=== PATIENT | female | born 1995 | race Two or more races ===

== ENCOUNTER 2024-06-09 20:25 | Emergency (ER) | payer MEDICAID, OTHER ==
[~2024-06-09] VITALS: Ht 162.6 cm; Wt 84.8 kg
--- NOTE | 2024-06-09 23:04 | ED.PDOC ---
SOB-HPI HPI Comments C/C of cough, generalized body aches, congestion and sneezing since Thursday. PMH of asthma, pt states she took prednisone x2 today at 1000 with no relief. Pt afebrile. No s/s of distress noted. Pt breathing even and unlabored on room air. 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 Family History Family History: Reviewed,noncontributory to illness Social History Smoker: Non-Smoker Alcohol: Denies ETOH Use Drugs: Denies Drug Use Constitutional: reports: fever, weakness; denies: chills, diaphoresis, fatigue, malaise, sweats, others EENTM: reports: nasal discharge; denies: blurred vision, double vision, ear bleeding, ear discharge, ear drainage, ear pain, ear ringing, eye pain, eye redness, hearing loss, mouth pain, mouth swelling, nose bleeding, nose congestion, nose pain, photophobia, tearing, throat pain, throat swelling, voice changes, others Respiratory: reports: cough; denies: hemoptysis, orthopnea, SOB at rest, shortness of breath, SOB with excertion, stridor, wheezing, others Cardiovascular: denies: chest pain, dizzy spells, diaphoresis, Dyspnea on exertion, edema, irregular heart beat, left arm pain, lightheadedness, palpitations, PND, syncope, others Gastrointestinal: denies: abdomen distended, abdominal pain, blood streaked bowels, constipated, diarrhea, dysphagia, difficulty swallowing, hematemesis, melena, nausea, poor appetite, poor fluid intake, rectal bleeding, rectal pain, vomiting, others Genitourinary: denies: abnormal vagina bleeding, burning, dyspareunia, dysuria, flank pain, frequency, hematuria, incontinence, pain, , vagina discharge, urgency, others Neurological: denies: dizziness, fainting, headache, left sided numbness, left sided weakness, numbness, paresthesia, pre-existing deficit, right sided numbness, right sided weakness, seizure, speech problems, tingling, tremors, weakness, others Musculoskeletal: denies: back pain, gout, joint pain, joint swelling, muscle pain, muscle stiffness, neck pain, others Integumetry: denies: bruises, change in color, change in hair/nails, dryness, laceration, lesions, lumps, rash, wounds, others Allergic/Immunocompromised: denies: Difficulty Healing, Frequent Infections, Hives, Itching, others Hematologic/Lymphatic: denies: anemia, blood clots, easy bleeding, easy bruising, swollen glands, others Endocrine: denies: excessive hunger, excessive sweating, excessive thirst, excessive urination, flushing, intolerance to cold, intolerance to heat, unexp lained weight gain, unexplained weight loss, others Psychiatric: denies: anxiety, bipolar disorder, depression, hopeless, panic disorder, schizophrenia, sleepless, suicidal, others Physical Exam General Appearance: No Apparent Distress, Normal HEENT: Normal ENT Inspection, Pharynx Normal, TMs Normal Neck: Full Range of Motion, Non-Tender, Normal, Normal Inspection Respiratory: Chest Non-Tender, No Accessory Muscle Use, No Respiratory Distress, Wheezing Cardiovascular: No Edema, No JVD, No Murmur, No Gallop, Normal Peripheral Pulses, Regular Rate/Rhythm Breast Exam: Deferred Gastrointestinal: No Organomegaly, Non Tender, No Pulsatile Mass, Normal Bowel Sounds, Soft Genitalia: Deferred Pelvic: Deferred Rectal: Deferred Extremities: No calf tenderness, Normal capillary refill, Normal inspection, Normal range of motion, Non-tender, No pedal edema Musculoskeletal : Apperance: Normal Neurologic: Alert, 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 Was a procedure done?: No Differential Dx Differential Diagnosis: Asthma, Bronchitis, Pneumonia X-Ray, Labs, Meds, VS Vital Signs Date Time Temp Pulse Resp B/P (MAP) Pulse Ox O2 Delivery O2 Flow Rate FiO2 06/09/24 23:35 98.7 120 18 162/119 (133) 97 98.7 06/09/24 23:20 18 98 Room Air* 0 21 06/09/24 22:04 100 16 98 Room Air 06/09/24 22:04 99.0 100 16 106/73 (84) 98 99.0 06/09/24 20:54 99.0 100 16 106/73 (84) 98 99.0 Current Medications Medications (Trade) Dose Ordered Sig/Maria Elena Route Start Time Stop Time Status Last Admin Albuterol (Ventolin Medneb) 5 mg ONCE ONCE NEB 06/09/24 23:15 06/09/24 23:16 DC 06/09/24 23:44 Ipratropium [place] (Atrovent Medneb) 0.5 mg ONCE ONCE NEB 06/09/24 23:15 06/09/24 23:16 DC 06/09/24 23:44 Methylprednisolone Sodium Succinate (Solu Medrol) 125 mg ONCE ONCE IM 06/09/24 23:15 06/09/24 23:16 DC 06/09/24 23:19 X-Ray, Labs, Meds, VS Comment PATIENT RECEIVED BREATHING TREATMENT LUNG SOUNDS CLEAR AND EQUAL BILATERAL TOLERATED WELL REPORTS IMPROVEMENT IN REQUESTING DISCHARGE AT THIS TIME MEDROL GIVEN 125 MG IM. TRIAL AZITHROMYCIN ADVISED TO REST INCREASE P.O. FLUIDS WITH ELECTROLYTES PATIENT STATES SHE HAS HER RESCUE INHALER AT HOME AND AVAILABLE DOES NOT READ REFILL AT THIS TIME. ADVISED TO FOLLOW UP WITH HER PCP IN 2-3 DAYS NECESSARY ER RETURN PRECAUTIONS GIVEN. TAKE MEDICATIONS PRESCRIBED SIDE EFFECTS DISCUSSED PATIENT INDICATES UNDERSTANDING AND AGREES WITH DISCHARGE PLAN OF CARE. Time of 1ST Reevaluation: 23:50 Reevaluation 1ST: Improved Patient Education/Counseling: Diagnosis, Treatment, Prognosis, Need For Follow Up Family Education/Counseling: Diagnosis, Treatment, Prognosis, Need For Follow Up Departure 1 Departure Time of Disposition: 23:52 Impression: Primary Impression: Lower respiratory infection Disposition: 01 HOME / SELF CARE / HOMELESS Condition: Stable e-Prescriptions Promethazine-Dm (Promethazine Dm 6.25-15 mg/5Ml) 1 Marni Marni 5 ML PO QID PRN for 5 Days, #100 ML Prov: BERNICE PIERCEP 06/09/24 Azithromycin (Azithromycin) 250 Mg Tab 250 MG PO DAILY MDD 500 for 5 Days, #6 TAB 0 Refills 2 TABLETS ORALLY ON DAY ONE, THEN 1 TABLET ORALLY DAILY FOR 4 DAYS Prov: BERNICE PIERCE MANAGER MARKETING [employer]ES 06/09/24 Discharged With: Significant Other Critical Care Note Critical Care Time?: No Stability Stability form required: No Heart Score Heart Score: Heart Score Response (Comments) Value History N/A 0 EKG N/A 0 Age <45 0 Risk Factors N/A 0 Troponin N/A 0 Total 0 BERNICE PIERCE [facility] Jun 09, 2024 23:04
[2024-06-09] MEDS: methylPREDNISolone SOD SUCC 125 MG/2 ML VL IM ONE (23:19)
[2024-06-09 23:35] VITALS: PULSE 120; RESP 18; TEMP 98.7; O2SAT 97
[2024-06-09] MEDS: IPRATROPIUM BROM 0.5 MG/2.5ML INH SOL NEB ONE (23:44)
[2024-06-09] MEDS: ALBUTEROL SULF 2.5 MG/0.5ML(0.5%) NEB SOLN NEB ONE (23:44)
[2024-06-09] MEDS ORDERED: AZIT-43 PO (23:55)
[2024-06-09] MEDS ORDERED: PROM1SOL4 PO (23:55)
[2024-06-10 00:07] VITALS: BP 112/57
== END 2024-06-10 00:08 | disposition home or self-care (01) ==
LOC: ER 20:25
DX: J22 Unspecified acute lower respiratory infection (principal); J45.909 Unspecified asthma, uncomplicated
CPT/HCPCS: 94640; 96372; 99283; J2919

== ENCOUNTER 2024-08-25 02:02 | Emergency (ER) | payer MEDICAID ==
[~2024-08-25] VITALS: Ht 162.6 cm; Wt 87.3 kg
[~2024-08-25 02:02] MED LIST: AZIT-43 PO
[2024-08-25 02:38] VITALS: BP 119/53; PULSE 68; RESP 16; TEMP 97.5; O2SAT 98
[2024-08-25] MEDS ORDERED: ALBUAER3 IN (02:43)
--- NOTE | 2024-08-25 02:43 | ED.PDOC ---
SOB-HPI HPI Comments 28-YEAR-OLD FEMALE PRESENTS TO ER WITH COMPLAINTS OF MEDICATION REFILL. PATIENT WITH PAST MEDICAL HISTORY SIGNIFICANT FOR ASTHMA REPORTS THAT SHE RAN OUT OF HER ALBUTEROL INHALER FOUR DAYS AGO AND PRESENTS TO ER TODAY FOR MEDICATION REFILL OF ALBUTEROL. REPORTS THAT SHE HAS BEEN EXPERIENCING INTERMITTENT EPISODES OF SHORTNESS OF BREATH AT NIGHT X4 DAYS, DENYING ANY CURRENTLY AND DENIES ANY PAIN. PATIENT PRESENTS TO ER AMBULATORY ON ARRIVAL, WITH STEADY GAIT, IN NO DISTRESS WITH NO WHEEZING NOTED AND VITALS STABLE. 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 Family History Family History: Unknown Social History Smoker: Non-Smoker Alcohol: Denies ETOH Use Drugs: Denies Drug Use Lives In: Home Constitutional: denies: chills, diaphoresis, fatigue, fever, malaise, sweats, weakness, others EENTM: denies: blurred vision, double vision, ear bleeding, ear discharge, ear drainage, ear pain, ear ringing, eye pain, eye redness, hearing loss, mouth pain, mouth swelling, nasal discharge, nose bleeding, nose congestion, nose pain, photophobia, tearing, throat pain, throat swelling, voice changes, others Respiratory: reports: others ( STATED IN HPI) Cardiovascular: denies: chest pain, dizzy spells, diaphoresis, Dyspnea on exertion, edema, irregular heart beat, left arm pain, lightheadedness, palpitations, PND, syncope, others Gastrointestinal: denies: abdomen distended, abdominal pain, blood streaked bowels, constipated, diarrhea, dysphagia, difficulty swallowing, hematemesis, melena, nausea, poor appetite, poor fluid intake, rectal bleeding, rectal pain, vomiting, others Genitourinary: denies: abnormal vagina bleeding, burning, dyspareunia, dysuria, flank pain, frequency, hematuria, incontinence, pain, , vagina discharge, urgency, others Neurological: denies: dizziness, fainting, headache, left sided numbness, left sided weakness, numbness, paresthesia, pre-existing deficit, right sided numbness, right sided weakness, seizure, speech problems, tingling, tremors, weakness, others Musculoskeletal: denies: back pain, gout, joint pain, joint swelling, muscle pain, muscle stiffness, neck pain, others Integumetry: denies: bruises, change in color, change in hair/nails, dryness, laceration, lesions, lumps, rash, wounds, others Allergic/Immunocompromised: denies: Difficulty Healing, Frequent Infections, H amisha, Itching, others Hematologic/Lymphatic: denies: anemia, blood clots, easy bleeding, easy bruising, swollen glands, others Endocrine: denies: excessive hunger, excessive sweating, excessive thirst, excessive urination, flushing, intolerance to cold, intolerance to heat, unexplained weight gain, unexplained weight loss, others Psychiatric: denies: anxiety, bipolar disorder, depression, hopeless, panic disorder, schizophrenia, sleepless, suicidal, others Physical Exam General Appearance: No Apparent Distress, Obese HEENT: Normal ENT Inspection, PERRL/EOMI, Pharynx Normal, TMs Normal Neck: Full Range of Motion, Non-Tender, Normal Respiratory: Chest Non-Tender, Lungs Clear, No Accessory Muscle Use, No Respiratory Distress, Normal Breath Sounds Cardiovascular: No Murmur, No Gallop, Regular Rate/Rhythm Breast Exam: Deferred Gastrointestinal: NOT DONE Genitalia: Deferred Pelvic: Deferred Rectal: Deferred Extremities: Normal capillary refill, Normal range of motion Neurologic: Alert, 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 Was a procedure done?: No Sedation Sedation?: No Differential Dx Differential Diagnosis: Pneumonia, Pulmonary Embolism, Respiratory Distress, URI X-Ray, Labs, Meds, VS Vital Signs Date Time Temp Pulse Resp B/P (MAP) Pulse Ox O2 Delivery O2 Flow Rate FiO2 08/25/24 02:38 68 16 98 Room Air 08/25/24 02:38 97.5 68 16 119/53 (75) 98 97.5 08/25/24 02:24 16 98 Room Air* 0 21 08/25/24 02:24 97.5 68 16 119/55 (49) 98 97.5 PATIENT ASYMPTOMATIC PRIOR TO DISCHARGE ADVISED TO DRINK PLENTY OF FLUIDS ADVISED TO FOLLOW UP WITH PCP IN 1-2 DAYS PATIENT VERBALIZED UNDERSTANDING AND AGREEABLE WITH CURRENT PLAN OF CARE ADVISED TO RETURN TO ER IMMEDIATELY IF SYMPTOMS WORSEN Time of 1ST Reevaluation: 02:24 Reevaluation 1ST: N/A Patient Education/Counseling: Diagnosis, Treatment, Prognosis, Need For Follow Up Family Education/Counseling: No Family Present Departure 1 Departure Time of Disposition: 02:40 Impression: Primary Impression: Acute asthma Additional Impression: Medication refill Disposition: 01 HOME / SELF CARE / HOMELESS Condition: Stable e-Prescriptions Albuterol Sulfate (VENTOLIN MDI) 90 Mcg Ih 2 PUFF IN Q4HPRN, #1 INH 0 Refills Prov: MERLENE OLGUIN 08/25/24 Discharged With: Self Critical Care Note Critical Care Time?: No Stability Stability form required: No Heart Score Heart Score: Heart Score Response (Comments) Value History N/A 0 EKG N/A 0 Age N/A 0 Risk Factors N/A 0 Troponin N/A 0 Total 0 MERLENE OLGUIN Aug 25, 2024 02:43
== END 2024-08-25 02:48 | disposition home or self-care (01) ==
LOC: ER 02:02
DX: J45.909 Unspecified asthma, uncomplicated (principal); Z76.0 Encounter for issue of repeat prescription

== ENCOUNTER 2024-09-06 15:57 | Emergency (ER) | payer MEDICAID ==
[~2024-09-06] VITALS: Ht 172.7 cm; Wt 86.0 kg
[~2024-09-06 15:57] MED LIST changes: +ALBUAER3 IN
[2024-09-06] MEDS: predniSONE 20 MG TAB PO ONE (16:30)
--- NOTE | 2024-09-06 16:30 | ED.PDOC ---
SOB-HPI HPI Comments 28 year old female with a Hx of asthma presents to the ED for the c/c if SOB. Pt states that her SOB has been onset for the past 1x month and has had associated cough, and wheezes. Pt is noted to be from [place], but was seen here on the 25 of August. Pt notes on being out of her prescribed albuterol. Patient denies fever, chest pain, abdominal pain, nausea, vomiting, diarrhea, headache, dizziness. No other symptoms or modifying factors reported at this time. Patient is alert and oriented x4 and has a stable gait. 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 Family History Family History: Unknown Social History Smoker: Non-Smoker Alcohol: Denies ETOH Use Drugs: Denies Drug Use Lives In: Home Constitutional: denies: chills, diaphoresis, fatigue, fever, malaise, sweats, weakness, others EENTM: denies: blurred vision, double vision, ear bleeding, ear discharge, ear drainage, ear pain, ear ringing, eye pain, eye redness, hearing loss, mouth pain, mouth swelling, nasal discharge, nose bleeding, nose congestion, nose pain, photophobia, tearing, throat pain, throat swelling, voice changes, others Respiratory: reports: SOB at rest, shortness of breath; denies: cough, hemoptysis, orthopnea, SOB with excertion, stridor, wheezing, others Cardiovascular: denies: chest pain, dizzy spells, diaphoresis, Dyspnea on exertion, edema, irregular heart beat, left arm pain, lightheadedness, palpitations, PND, syncope, others Gastrointestinal: denies: abdomen distended, abdominal pain, blood streaked bowels, constipated, diarrhea, dysphagia, difficulty swallowing, hematemesis, melena, nausea, poor appetite, poor fluid intake, rectal bleeding, rectal pain, vomiting, others Genitourinary: denies: abnormal vagina bleeding, burning, dyspareunia, dysuria, flank pain, frequency, hematuria, incontinence, pain, , vagina discharge, urgency, others Neurological: denies: dizziness, fainting, headache, left sided numbness, left sided weakness, numbness, paresthesia, pre-existing deficit, right sided numbness, right sided weakness, seizure, speech problems, tingling, tremors, weakness, others Musculoskeletal: denies: back pain, gout, joint pain, joint swelling, muscle pain, muscle stiffness, neck pain, others Integumetry: denies: bruises, change in color, change in hair/nails, dryness, laceration, lesions, lumps, rash, wounds, others Allergic/Immunocompromised: denies: Difficulty Healing, Frequent Infections, Hives, Itching, others Hematologic/Lymphatic: denies: anemia, blood clots, easy bleeding, easy bruising, swollen glands, others Endocrine: denies: excessive hunger, excessive sweating, excessive thirst, excessive urination, flushing, intolerance to cold, intolerance to heat, unexplained weight gain, unexplained weight loss, others Psychiatric: denies: anxiety, bipolar disorder, depression, hopeless, panic disorder, schizophrenia, sleepless, suicidal, others All Other Systems: Reviewed and Negative Physical Exam General Appearance: No Apparent Distress, Normal HEENT: Normal ENT Inspection, Pharynx Normal, TMs Normal Neck: Full Range of Motion, Non-Tender, Normal Respiratory: Chest Non-Tender, Normal Breath Sounds, Wheezing (Scattered Expriatory wheezes in upper lobes ) Cardiovascular: No Edema, No JVD, No Murmur, Normal Peripheral Pulses, Regular Rate/Rhythm Breast Exam: Deferred Gastrointestinal: Non Tender, No Pulsatile Mass, Normal Bowel Sounds, Soft Genitalia: Deferred Pelvic: Deferred Rectal: Deferred Extremities: No calf tenderness, Normal range of motion, Non-tender, No pedal edema Musculoskeletal : Apperance: Normal Neurologic: Alert, No Motor Deficits, Normal Mood Cerebellar Function: Normal Reflexes: Normal Skin: Dry, Normal Color, Warm Lymphatic: No Adenopathy Was a procedure done? Was a procedure done?: No Differential Dx Differential Diagnosis: Anxiety, Asthma, Bronchitis, COPD, Hypertension, Panic Attack, Pneumonia, Respiratory Distress, Pharyngitis X-Ray, Labs, Meds, VS Vital Signs Date Time Temp Pulse Resp B/P (MAP) Pulse Ox O2 Delivery O2 Flow Rate FiO2 09/06/24 16:38 18 99 Room Air* 0 21 09/06/24 16:38 99 Room Air* 0 21 09/06/24 16:20 97.8 84 18 126/64 (84) 98 97.8 Current Medications Medications (Trade) Dose Ordered Sig/Maria Elena Route Start Time Stop Time Status Last Admin Ipratropium [place] (Atrovent Medneb) 0.5 mg ONCE ONCE NEB 09/06/24 16:30 09/06/24 16:31 DC 09/06/24 16:38 Albuterol (Ventolin Medneb) 5 mg ONCE ONCE NEB 09/06/24 16:30 09/06/24 16:31 DC 09/06/24 16:38 Prednisone 40 mg ONCE ONCE PO 09/06/24 16:30 09/06/24 16:31 DC 09/06/24 16:30 PATIENT: SIMIN ANDERS ACCT: [id number] UNIT: [id number] : 1995 LOC: ER ROOM / BED: / AGE / SEX: 28 / F ADM STATUS: REG ER SERVICE 1622 ORDERING PHYSICIAN: HERMANN RODRÍGUEZ PROCEDURE(s): CXR1 - CHEST XRAY 1 VIEW REASON: SOB ORDER NUMBER(s): [id number], ACCESSION NUMBER(s): [id number] CHEST RADIOGRAPH Indication: SOB Technique: Single frontal view of the chest was obtained Comparison: None FINDINGS: Lines and Tubes: None Lungs: No focal consolidation. Pleura: No effusion. No pneumothorax. Cardiomediastinal contours: Unremarkable Bones: No acute osseous abnormality. IMPRESSION: 1. No acute cardiopulmonary disease. X-Ray, Labs, Meds, VS Comment Imaging: X-rays and CT scans were reviewed and interpreted by this provider, imaging shows no fractures and no pathological disease. Pending radiology review. Laboratory: Labs reviewed and interpreted by this provider. No significant abnormalities noted. Patient has prior medical visits reviewed. Med reconciliation performed Vital signs reviewed Time of 1ST Reevaluation: 16:56 Reevaluation 1ST: Unchanged Patient Education/Counseling: Diagnosis, Treatment, Need For Follow Up (Follow up in the emergency department in the next 24-48 hours if symptoms worsen. It was advised to follow up with your primary care doctor in the next 3-4 days for further evaluation.) Family Education/Counseling: No Family Present SEPSIS Sepsis Screen Orders/Vitals/Labs Physician Orders Chest Xray 1 View (09/06/24 16:22) Vital Signs Date Time Temp Pulse Resp B/P (MAP) Pulse Ox O2 Delivery O2 Flow Rate FiO2 09/06/24 16:38 18 99 Room Air* 0 21 09/06/24 16:38 99 Room Air* 0 21 09/06/24 16:20 97.8 84 18 126/64 (84) 98 97.8 Medications Medications Dose Ordered Sig/Maria Elena Route Start Time Stop Time Status Last Admin Dose Admin Albuterol 5 mg ONCE ONCE NEB 09/06/24 16:30 09/06/24 16:31 DC 09/06/24 16:38 Ipratropium [place] 0.5 mg ONCE ONCE NEB 09/06/24 16:30 09/06/24 16:31 DC 09/06/24 16:38 Prednisone 40 mg ONCE ONCE PO 09/06/24 16:30 09/06/24 16:31 DC 09/06/24 16:30 Departure 1 Departure Time of Disposition: 17:53 Impression: Primary Impression: Acute asthma Disposition: 01 HOME / SELF CARE / HOMELESS Condition: Fair e-Prescriptions Albuterol Sulfate (Albuterol Sulfate Hfa) 108 Mcg/Act Aer 108 MCG IN TID PRN, #1 AER Prov: HERMANN RODRÍGUEZP 09/06/24 Montelukast Sodium (Singulair) 10 Mg Tab 10 MG PO DAILY for 30 Days, #30 TAB Prov: HERMANN RODRÍGUEZP 09/06/24 Prednisone (Prednisone) 20 Mg Tab 20 MG PO DAILY, #5 MG Prov: HERMANN RODRÍGUEZ TITLE I INSTRUCTIONAL ASSISTANT 09/06/24 [id number] (Trelegy Ellipta 100-62.5-25 Mcg/INH) 1 Aer Aer 1 AER IN DAILY for 30 Days, #1 AER Prov: HERMANN RODRÍGUEZ TITLE I INSTRUCTIONAL ASSISTANT 09/06/24 Discharged With: Self Critical Care Note Critical Care Time?: No Stability Stability form required: No Heart Score Heart Score: Heart Score Response (Comments) Value History N/A 0 EKG N/A 0 Age N/A 0 Risk Factors N/A 0 Troponin N/A 0 Total 0 I personally scribed for HERMANN RODRÍGUEZ (TONYA) on 09/06/24 at 16:30. Electronically submitted by Micheal Salazar ([email or web address]). I personally scribed for HERMANN RODRÍGUEZ (TONYA) on 09/06/24 at 17:00. Electronically submitted by Micheal Salazar ([email or web address]). HERMANN RODRÍGUEZ Sep 06, 2024 16:30
[2024-09-06] MEDS: IPRATROPIUM BROM 0.5 MG/2.5ML INH SOL NEB ONE (16:38)
[2024-09-06] MEDS: ALBUTEROL SULF 2.5 MG/0.5ML(0.5%) NEB SOLN NEB ONE (16:38)
--- NOTE | 2024-09-06 16:52 | DVH ---
CHEST RADIOGRAPH Indication: SOB Technique: Single frontal view of the chest was obtained Comparison: None FINDINGS: Lines and Tubes: None Lungs: No focal consolidation. Pleura: No effusion. No pneumothorax. Cardiomediastinal contours: Unremarkable Bones: No acute osseous abnormality. IMPRESSION: 1. No acute cardiopulmonary disease. HS:Y
[2024-09-06] MEDS ORDERED: PRED20TA2 PO (17:55)
[2024-09-06] MEDS ORDERED: MONT10TA23 PO (17:55)
[2024-09-06] MEDS ORDERED: FLUT1AER3 IN (17:55)
[2024-09-06] MEDS ORDERED: ALBU108A5 IN (17:55)
[2024-09-06 18:46] VITALS: BP 123/76; PULSE 16; RESP 70; TEMP 98.1; O2SAT 99
== END 2024-09-06 18:48 | disposition home or self-care (01) ==
LOC: ER 15:57
DX: J45.909 Unspecified asthma, uncomplicated (principal); R06.02 Shortness of breath
CPT/HCPCS: 71045; 94640; 99283; J7512